=== PATIENT | male | born 1965 | race Two or more races ===

== ENCOUNTER 2025-11-02 09:10 | Emergency (ER) | payer BC, OTHER ==
[~2025-11-02] VITALS: Ht 170.2 cm; Wt 106.0 kg
--- NOTE | 2025-11-02 09:44 | ECG ---
[facility] Test Date: 2025-11-02 Test Time: 09:18:03 Pat Name: SAJAN APPIAH Department: ED Room: Gender: M Contracts Analyst: NISHA : 1965 Requested By: ROSANNA LAWTON Order Number: [id number] Reading MD: Cyrus Kumari Measurements Intervals [place] Rate: 78 P: 43 [place]: 143 QRS: 55 QRSD: 88 T: 39 QT: 337 QTc: 384 Interpretive Statements Sinus rhythm Atrial premature complex Electronically Signed On 11-04-2025 19:28:21 PST by Cyrus Kumari Please click the below link to view image of tracing.
[2025-11-02 09:55] LABS: Hematocrit 39.4 % (41.0-53.0); Hemoglobin 13.6 g/dL (13.5-17.5); Mean Corpuscular Hemoglobin 32.2 pg (28.0-32.0); Mean Corpuscular Volume 93.3 fL (80.0-100.0); Nucleated Red Blood Cells % 0.1 %
[2025-11-02 10:00] LABS: Chloride 105 mmol/L (98-107); Potassium 4.0 mmol/L (3.5-5.1); Sodium 139 mmol/L (136-145)
[2025-11-02 10:01] LABS: Anion Gap 6 (5-15); Calcium 9.8 mg/dL (8.7-10.4); Carbon Dioxide 28 mmol/L (20-31)
[2025-11-02 10:06] LABS: BUN/Creatinine Ratio 15.0 (10.0-20.0); Blood Urea Nitrogen 15 mg/dL (9-23); Glucose 94 mg/dL (74-106)
[2025-11-02 11:15] LABS: Urine Protein, UAD Negative (Negative)
[2025-11-02 14:49] VITALS: BP 134/74; PULSE 87; RESP 20; TEMP 98; O2SAT 96
[2025-11-02] MEDS ORDERED: IBUP-1453 PO (17:25)
[2025-11-02] MEDS ORDERED: METH-1181 PO (17:25)
--- NOTE | 2025-11-02 18:27 | ED.PDOC ---
General HPI Comments 60-year-old male here today with the complaints of midthoracic back pain that radiates to his right chest area that has been going on over the last three weeks. Patient denies any specific trauma that started this pain. States it feels like an ache and worsens when he twists his back. No focal numbness or weakness. No nausea, vomiting, diarrhea, fevers, chills, diaphoresis, coughing, shortness a breath, palpitations. No rashes. No other pain or symptoms. Chief Complaint: Back Pain Time Seen by MD: 09:23 Allergies: Coded Allergies: NO KNOWN ALLERGIES (Unverified , 11/02/25) Home Meds Active Scripts Methocarbamol (Methocarbamol) 500 Mg Tab, 500 MG PO Q6HR for 5 Days, #20 TAB Prov:ROSANNA LAWTON MD 11/02/25 Ibuprofen (Ibuprofen) 400 Mg Tab, 1 TAB PO Q6HPRN PRN for 5 Days, #20 TAB Prov:ROSANNA LAWTON MD 11/02/25 Mode of Arrival: Ambulatory Past Medical History PAST MEDICAL HISTORY: Denies Surgical History: Denies all surgeries All Other Systems: Reviewed and Negative (Negative except as per HPI above) Physical Exam General Appearance: No Apparent Distress, Normal HEENT: Normal ENT Inspection, Pharynx Normal, TMs Normal Neck: Full Range of Motion, Non-Tender, Normal, Normal Inspection, Other (Mild tenderness to palpation to the right parathoracic musculature, no midline tenderness to palpation, no step-offs, no crepitus, no rash on skin exam) Respiratory: Chest Non-Tender, Lungs Clear, No Accessory Muscle Use, No Respiratory Distress, Normal Breath Sounds Cardiovascular: No Edema, No JVD, No Murmur, No Gallop, Normal Peripheral Pulses, Regular Rate/Rhythm Breast Exam: Deferred Gastrointestinal: No Organomegaly, Non Tender, No Pulsatile Mass, Normal Bowel Sounds, Soft Genitalia: Deferred Pelvic: Deferred Rectal: Deferred Extremities: No calf tenderness, Normal capillary refill, Normal inspection, Normal range of motion, Non-tender, No pedal edema Musculoskeletal : Apperance: Normal Neurologic: Alert, plant production manager II-XII nml as Tested, No Motor Deficits, Normal Affect, Normal Mood, No Sensory Deficits Cerebellar Function: Normal Reflexes: Normal Skin: Dry, Normal Color, Warm Lymphatic: No Adenopathy Was a procedure done? Was a procedure done?: No Differential Diagnosis Kidney stone (Female): AAA, Aortic dissection, Cholelithiasis Other Differential Diagnosis ACS, pneumonia, pneumothorax, pulmonary embolism, radiculopathy, shingles, spinal cord compression, spinal fracture/dislocation X-Ray, Labs, Meds, VS Vital Signs Date Time Temp Pulse Resp B/P (MAP) Pulse Ox O2 Delivery O2 Flow Rate FiO2 11/02/25 14:49 98.0 87 20 134/74 (94) 96 98.0 11/02/25 12: 98.0 90 18 150/94 (112) 97 98.0 11/02/25 09:38 90 17 97 Room Air 11/02/25 09:38 98.6 90 17 145/81 (102) 97 98.6 11/02/25 09:18 78 11/02/25 09:12 97.9 85 18 159/97 96 97.9 Lab Test 11/02/25 10:29 11/02/25 09:43 11/02/25 08:23 Range/Units Troponin I High Sensitivity < 3 L < 3 L </=54 ng/L Urine Color Colorless Yellow Urine Clarity Clear Clear Urine pH 7.0 5.0-9.0 Urine Specific [place] 1.009 1.001-1.035 Urine Protein Negative Negative Urine Ketones Negative Negative Urine Blood Negative Negative /uL Urine Nitrite Negative Negative Urine Bilirubin Negative Negative Urine Urobilinogen Normal Negative mg/dL Urine Leukocyte Esterase Negative Negative /uL Urine RBC None seen 0 - 3 /hpf Urine Microscopic WBC < 1 0-3 /HPF Urine Squamous Epithelial Cells None seen <5 /hpf Urine Bacteria None seen None Seen /hpf Urine Glucose Normal Normal mg/dL White Blood Count 6.3 4.4-10.8 10^3/uL Red Blood Count 4.23 L 4.5-5.90 10^6/uL Hemoglobin 13.6 13.5-17.5 g/dL Hematocrit 39.4 L 41.0-53.0 % Mean Corpuscular Volume 93.3 80.0-100.0 fL Mean Corpuscular Hemoglobin 32.2 H 28.0-32.0 pg Mean Corpuscular Hemoglobin Concent 34.5 32.0-36.0 g/dL Red Cell Distribution Width 12.8 11.8-14.3 % Platelet Count 297 140-450 10^3/uL Mean Platelet Volume 7.9 6.9-10.8 fL Neutrophils (%) (Auto) 66.5 37.0-80.0 % Lymphocytes (%) (Auto) 25.7 10.0-50.0 % Monocytes (%) (Auto) 5.7 0.0-12.0 % Eosinophils (%) (Auto) 1.7 0.0-7.0 % Basophils (%) (Auto) 0.4 0.0-2.0 % Neutrophils # (Auto) 4.2 1.6-8.6 10 ^3/uL Lymphocytes # (Auto) 1.6 0.4-5.4 10 ^3/uL Monocytes # (Auto) 0.4 0-1.3 10 ^3/uL Eosinophils # (Auto) 0.1 0-0.8 10 ^3/uL Basophils # (Auto) 0 0-0.2 10 ^3/uL Nucleated Red Blood Cells 0.1 % Sodium Level 139 136-145 mmol/L Potassium Level 4.0 3.5-5.1 mmol/L Chloride Level 105 98-107 mmol/L Carbon Dioxide Level 28 20-31 mmol/L Anion Gap 6 5-15 Blood Urea Nitrogen 15 9-23 mg/dL Creatinine 1.00 0.700-1.30 mg/dL Glomerular Filtration Rate Calc 87 >90 mL/min BUN/Creatinine Ratio 15.0 10.0-20.0 Serum Glucose 94 74-106 mg/dL Calcium Level 9.8 8.7-10.4 mg/dL X-Ray, Labs, Meds, VS Comment Patient presents with mid back pain most likely secondary to MSK spasm/strain/radiculopathy. Patient without high risk features of back pain such as saddle anesthesia, weakness/numbness, urinary retention, bowel/bladder incontinence, unsteady gait. Discussed pain control with OTC pain control, warm packs and the importance of physical therapy and back exercises. Additionally, doubt ACS given troponin negative x2 and EKG without evidence of acute ischemia. She has symptoms also seemed to be consistent with a musculoskeletal cause given that they worsened when he twists his torso. Patient is otherwise hemodynamically stable and was discharged home. Reviewed return precautions including, but not limited to high risk features as above and uncontrolled pain. Patient is in agreement with the plan and all questions answered. Considered cauda equina, epidural abscess, spinal stenosis, malignancy, fracture, AAA, aortic dissection, pyelonephritis, renal colic, but consider these to be less likely based on above history/physical/evaluation. Time of 1ST Reevaluation: 18:12 Reevaluation 1ST: Improved Patient Education/Counseling: Diagnosis, Treatment, Prognosis, Need For Follow Up Family Education/Counseling: Diagnosis, Treatment, Prognosis, Need For Follow Up SEPSIS Sepsis Screen Date sepsis recognized/suspect: Nov 02, 2025 Time Sepsis recognized/suspect: 912 Recent Procedure: No On Antibiotic Therapy: No Respiratory Rate >20: No Heart Rate >90: No Temp<36 C (96.8 F) or >38.3 C: No SBP <90 or MAP <65 mmHG: No New Acute Mental Status Change: No Is the patient on CPAP, BIPAP,: No Vital Signs Date Time Temp Pulse Resp B/P (MAP) Pulse Ox O2 Delivery O2 Flow Rate FiO2 11/02/25 14:49 98.0 87 20 134/74 (94) 96 98.0 11/02/25 12:25 98.0 90 18 150/94 (112) 97 98.0 11/02/25 09:38 90 17 97 Room Air 11/02/25 09:38 98.6 90 17 145/81 (102) 97 98.6 11/02/25 09:18 78 11/02/25 09:12 97.9 85 18 159/97 96 97.9 Laboratory Tests Test 11/02/25 08:23 White Blood Count 6.3 10^3/uL (4.4-10.8) Departure 1 Departure Time of Disposition: 18:26 Impression: Primary Impression: Back pain Ruled Out: ACS (acute coronary syndrome) Disposition: 01 HOME / SELF CARE / HOMELESS Condition: Stable Additional Instructions: Discharge Note: Continue on your medications. Drink plenty of fluids. Follow up with your primary Dr. Take your prescriptions as ordered. If your condition becomes worse call and follow up with your primary Dr. for instructions or return to the ER if needed. Thank you for visiting . e-Prescriptions Methocarbamol (Methocarbamol) 500 Mg Tab 500 MG PO Q6HR for 5 Days, #20 TAB Prov: ROSANNA LAWTON MD 11/02/25 Ibuprofen (Ibuprofen) 400 Mg Tab 1 TAB PO Q6HPRN PRN for 5 Days, #20 TAB Prov: ROSANNA LAWTON MD 11/02/25 Critical Care Note Critical Care Time?: No Stability Stability form required: No Heart Score Heart Score: Heart Score Response (Comments) Value History N/A 0 EKG N/A 0 Age N/A 0 Risk Factors N/A 0 Troponin N/A 0 Total 0 ROSANNA LAWTON MD Nov 02, 2025 18:27
== END 2025-11-02 18:13 | disposition home or self-care (01) ==
LOC: ER 09:10
DX: M54.9 Dorsalgia, unspecified (principal); Z79.899 Other long term (current) drug therapy
CPT/HCPCS: 36415; 80048; 81001; 84484; 85025; 93005